=== PATIENT | male | born 1955 | race Caucasian/White ===

== ENCOUNTER 2017-12-29 08:54 | Inpatient (IN) | payer OTHER ==
[2017-12-29] MEDS ORDERED: NACL 0.9% 3 ML SYG IV (13:00)
[2017-12-29] MEDS ORDERED: ONDANSETRON 4 MG INJ IV (13:00)
[2017-12-29] MEDS ORDERED: morphine 2 MG INJ IV (13:00)
[2017-12-29] MEDS: NS + KCL 20 MEQ 1,000 ML IV (15:42)
[2017-12-30 05:06] LABS: ADD MAN DIFF? NO
[2017-12-30] MEDS: NS + KCL 20 MEQ 1,000 ML IV ×2 (05:10→13:35)
[2017-12-30 05:15] LABS: BASOPHILS % 0.4 % (0.0-2.0); EOSINOPHILS # 0.1 10^3/ul (0.0-0.5); EOSINOPHILS % 1.3 % (0.0-7.0); HEMATOCRIT 41.4 % (42.0-52.0); HEMOGLOBIN 13.2 g/dl (14.0-18.0); LYMPHOCYTES # 2.2 10^3/ul (0.8-2.9); LYMPHOCYTES % 24.3 % (15.0-51.0); MEAN CORPUSCULAR HEMOGLOBIN 27.9 pg (29.0-33.0); MEAN CORPUSCULAR HGB CONC 31.9 g/dl (32.0-37.0); MEAN CORPUSCULAR VOLUME 87.5 fl (82.0-101.0); MEAN PLATELET VOLUME 11.9 fl (7.4-10.4); MONOCYTE # 0.9 10^3/ul (0.3-0.9); MONOCYTES % 9.7 % (0.0-11.0); NEUTROPHIL # 5.7 10^3/ul (1.6-7.5); PLATELET COUNT 166 10^3/UL (140-415); RED BLOOD COUNT 4.73 10^6/ul (4.70-6.10); RED CELL DISTRIBUTION WIDTH 13.2 % (11.5-14.5)
[2017-12-30 05:41] LABS: ALANINE AMINOTRANSFERASE 51 IU/L (13-69); ALBUMIN 3.9 g/dl (3.3-4.9); ALBUMIN/GLOBULIN RATIO 1.77; ALKALINE PHOSPHATASE 49 IU/L (42-121); ANION GAP 12 (8-16); ASPARTATE AMINO TRANSFERASE 29 IU/L (15-46); BILIRUBIN,INDIRECT 0.4 mg/dl (0-1.1); BILIRUBIN,TOTAL 0.4 mg/dl (0.2-1.3); BLOOD UREA NITROGEN 13 mg/dl (7-20); CALCIUM 8.9 mg/dl (8.4-10.2); CARBON DIOXIDE 28 mmol/L (21-31); CHLORIDE 108 mmol/L (97-110); CHOL/HDL RATIO 2.3 RATIO; CHOLESTEROL 122 mg/dl (100-200); CREATININE 0.87 mg/dl (0.61-1.24); GLUCOSE 94 mg/dl (70-220); HDL CHOLESTEROL 51 mg/dl (30-78); LDL CHOLESTEROL,CALCULATED 57 mg/dl; MAGNESIUM 1.9 mg/dl (1.7-2.5); PHOSPHORUS 2.9 mg/dl (2.5-4.9); POTASSIUM 4.1 mmol/L (3.5-5.1); SODIUM 144 mmol/L (135-144); TOTAL PROTEIN 6.1 g/dl (6.1-8.1); TRIGLYCERIDES 71 mg/dl (0-149)
[2017-12-30 05:44] LABS: HEMOGLOBIN A1C 5.3 % (0-5.9)
[2017-12-30 05:57] LABS: FREE THYROXINE INDEX (Calc) 2.02 ug/ml (0.65-3.89); T3 UPTAKE 36.8 % (23.5-40.5); T4 (THYROXINE) 5.5 ug/dl (5.5-11.0)
[2017-12-30 06:10] LABS: THYROID STIMULATING HORMONE 0.599 MIU/L (0.465-4.680)
[2017-12-30] MEDS: ASPIRIN 81 MG TAB PO (08:12)
[2017-12-30 15:21] LABS: LIPASE 146 U/L (23-300)
[2017-12-30] MEDS: MECLIZINE 25 MG TAB PO (15:49)
[2017-12-30] MEDS: ATORVASTATIN 80 MG TAB PO (20:52)
[2017-12-31] MEDS: ASPIRIN 81 MG TAB PO (10:00)
== END 2017-12-31 18:44 | disposition home or self-care (01) | DRG 440 ==
LOC: MS1 08:54
PROVIDERS: Internal Medicine
DX: K85.90 Acute pancreatitis without necrosis or infection, unspecified (principal); Z86.73 Personal history of transient ischemic attack (TIA), and cerebral infarction without residual deficits; R42 Dizziness and giddiness; F32.9 Major depressive disorder, single episode, unspecified; E78.5 Hyperlipidemia, unspecified; M54.5 Low back pain
CPT/HCPCS: 70551; 80053; 80061; 83036; 83690; 83735; 84100; 84436; 84443; 84479; 85025; 93306; 93880; 95819; 97161